=== PATIENT | male | born 2000 | race Two or more races ===

== ENCOUNTER 2020-08-26 15:17 | Emergency (ER) | payer OTHER, SELFPAY ==
[2020-08-26 16:00] VITALS: BP 142/84; PULSE 88; RESP 14; TEMP 36.9; O2SAT 100; BMI 29.0
--- NOTE | 2020-08-26 16:41 | ED.GENADULT ---
HPI - General Adult General Chief complaint: General Medical Stated complaint: Lip pigmentation concern Time Seen by Provider: 08/26/20 16:09 Source: patient Mode of arrival: ambulatory History of Present Illness HPI narrative: 19-year-old male with no significant past medical history presenting to the ED complaining of discoloration to lips x 2.5-3 weeks. Denies known injury/trauma, new exposures/chemical peels, new medications, sunburn, pain, drainage from area, sores Onset (ago): week(s) Related Data Allergies Allergy/AdvReac Type Severity Reaction Status Date / Time No Known Allergies Allergy Unverified 03/19/20 18:55 [No Known Allergies*] Review of Systems Review of Systems: Constitutional: No Fever, No Chills ENT/Mouth: No Ear Pain, No Nasal Congestion, No sore throat, No Rhinorrhea, No Swallowing Difficulty Cardiovascular: No Chest Pain, No SOB Respiratory: No Cough Gastrointestinal: No Nausea, No Vomiting Skin: +Skin Lesions, No rash Yes all other systems are reviewed and are negative PMFSH Past Medical History Attestation statement: The following information was validated with the patient. Medical History (Updated 08/26/20 @ 16:44 by CHRISTINA Farfan) No known health problems Social History Social History Smoking Status: Former smoker Smoked in Last 30 Days: Yes Use of substances other than those prescribed or required for medical reasons: No Advance Directives: No Advance Directives Information Provided: Yes Physical Exam Vital Signs: Vital Signs: Last Vital Signs Temp 98.5 F 08/26/20 16:00 Pulse 88 08/26/20 16:00 Resp 14 08/26/20 16:00 BP 142/84 H 08/26/20 16:00 Pulse Ox 100 08/26/20 16:00 Body Mass Index 29.0 Const: General: cooperative, healthy appearing and comfortable Orientation/consciousness: patient oriented x3 Limitations: no limitations HENMT: Other: Lips with slight brownish discoloration peripherally. No lesion. Nontender. No fluctuance or induration. Gums/gingival WNL Head: Yes normal to inspection Ears: hearing grossly normal bilaterally General nose exam: Normal external nose present Face and sinus: Yes normal facial exam Mouth: Normal oral and palatal mucosa present and no muffled voice Eyes: General: appearance normal, both eyes and all related structures EOM: EOMs intact bilaterally Neck: Neck: Yes normal visual inspection and Yes no meningeal signs Resp: Effort & Inspection: normal respiratory effort Cardio: Rate: regular rate Skin: Rashes: no rashes Wounds: no wounds Neuro: General: patient oriented x3 and no meningeal signs Gait exam (Neuro): Normal gait present Extrem: General: Yes normal to inspection Medical Decision Making MDM Narrative Medical decision making narrative: On exam VSS, NAD/well-appearing, physical exam as above. Likely normal variant of lip color. Unlikely infectious etiology/concerning rash or SJS/TENs Discharge Plan Discharge Clinical Impression: Skin pigmentation disorder Patient Disposition: Home, Self-Care Additional Instructions: All talk you need to follow-up with a quarter inspector Continue using topical ointments a you have new line if you develop fever, pain mentation worsens, you develop sores, or open wounds return to the ED Referrals: Leana Bear PA [Physician Assembly Line Inspector] - 2 days Lionel De La Vega MD [Physician] - 2 days Luis Lopes MD [Physician] - 2 days Dilpi Jung MD [Physician] - 2 days Racquel Colmenares NP [Nurse Practitioner] - 2 days Discharge Date/Time: 08/26/20 16:51
== END 2020-08-26 16:51 | disposition home or self-care (01) ==
PROVIDERS: Emergency Provider Emergency Medicine
DX: L81.9 Disorder of pigmentation, unspecified (principal); Z87.891 Personal history of nicotine dependence
CPT/HCPCS: 99283